=== PATIENT | female | born 1960 | race Caucasian/White ===

== ENCOUNTER 2023-02-27 13:19 | Outpatient (AMB) | payer OTHER, SELFPAY ==
[2023-02-27 13:23] VITALS: BP 152/86; PULSE 76; O2SAT 97; BMI 35.2
--- NOTE | 2023-02-27 13:23 | MHC.OFFVIS ---
Intake Vital Signs 02/27/23 13:23 Height 5 ft 1 in Weight 186 lb 6 oz BMI 35.2 BP 152/86 H Blood Pressure Location Lt brachial Position Sitting Pulse 76 Pulse Source Pulse Oximeter Pulse Oximetry (%) 97 Oxygen Delivery Method Room Air Intake Visit Reasons: NPV-Headaches Intake Note: Pt presents as a NPV for headaches. She doesn't know why, she thought it was because of diabetes but the doctor said no. [employer] Manager Required: No [employer] Manager Name: Friend, Pt refused [place] int Accompanied by: Friend Allergies No Known Allergies Allergy (Verified 02/27/23 13:29) Medication List - Last Reconciled 02/27/23 by STACY Petty aspirin 81 mg PO DAILY atorvastatin 40 mg PO DAILY calcium carbonate-vitamin D3 600 mg-5 mcg (200 unit) 1 tab PO DAILY cyanocobalamin (vitamin B-12) 100 mcg IM DAILY lisinopril-hydrochlorothiazide 20-12.5 mg 1 tab PO DAILY metformin ER 750 mg PO BID oxybutynin chloride 10 mg PO DAILY HPI HPI Comments History of Present Illness Details Left-handed 63-yr-old female presents for new pt evaluation of headache disorder. Pt reports she started having headaches about 1 yr ago. She initially thought this was r/t her diabetes but her PCP did not think so.Pt states she was very stressed at that time, but denies any other preceding causes. She had a Brain MRI- per PCP note, some white matter changes. Headache questionnaire: Headache characteristics? Back of the head, more so left sided. Feels like a strong noise. Pain intensity? Mild-mod Prodrome symptoms? None Aura? None Associated symptoms? Photophobia, phonophobia, brain fog, neck pain Focal weakness, Parethesias, Autonomic s/s? None Postdrome? It lingers Triggers? possibly poor sleep Positional, valsalva, exertional, sexual activity triggers? none Menstrual triggers? n/a Time of day? usually closer to the evening Duration? Constant- intensity fluctuates Frequency? Constant How does headache impact your life? The headache makes her daily activities more difficult Current acute medication use/interventions: Tylenol- helps some Previous acute medication use: None Current preventative medication use: None Previous preventative medication use: None Non-pharmacological interventions: Rest Other history of headache disorder? None History of musculoskeletal disorders or injury? Knee pain, leg cramping. Has some numbness and tingling in her linda fingers- ? diabetic neuropathy History of concussion/head injury? None History of mood disorder? None History of sleep disorder? sleep difficulties- difficulty initiating sleep, frequent arousals History of respiratory disease? None History of CV disease? HTN and HLD- BP is a bit higher at 152/86 than her normal-usually SBP 120-125s. Maybe she thinks she is nervous. History of coagulopathy? None History of endocrine or metabolic disease? Diabetes- pt states well-controlled History of seizure? None Other? Denies constipation. Family planning? n/a Family history of migraine or other headache disorder? her sister PFSH Surgical History (Updated 02/27/23 @ 13:37 by Jordana Matias CMA) Hx of appendectomy Family History Mother Hypertension Social History (Updated 02/27/23 @ 13:38 by Jordana Matias CMA) Alcohol intake: never Patient Tobacco Use Status: Never used Tobacco Review of Systems Const Details: See scanned ROS form Physical Exam Vital Signs: Last Vital Signs Pulse 76 02/27/23 13:23 BP 152/86 H 02/27/23 13:23 Pulse Ox 97 02/27/23 13:23 Oxygen Delivery Method Room Air 02/27/23 13:23 BMI result Body Mass Index 35.2 Const Orientation/consciousness: patient oriented x3 HEENT Other: No palpable scalp tenderness. Head: Yes normocephalic Resp Effort & Inspection: normal respiratory effort and able to speak in complete sentences Back/Spine/Pelvis Other: Bilateral posterior cervical tightness. Cervical ROM: full Left Spurling: normal Right Spurling: normal. Neuro General: patient oriented x3 Cranial nerves: Yes CN's II-XII intact bilaterally Cognition (Neuro): normal cognition Gait exam (Neuro): Normal gait present Motor exam (neuro): 5/5 motor strength present throughout Deep tendon reflexes (DTR's): Right triceps reflex intensity grade: 2+, Left triceps reflex intensity grade: 2+, Rt Biceps (C5, C6): 2+, Left biceps reflex intensity grade: 2+, Right brachioradialis reflex intensity grade: 2+, Left brachioradialis reflex intensity grade: 2+, Right patellar reflex intensity grade: 2+ and Left patellar reflex intensity grade: 2+ Coordination: [id number] test normal, tandem gait normal and Romberg test negative Pupils: Normal pupillary reactivity/response: bilateral Psych Appearance: grossly normal Mental Status: mental status grossly normal Speech and movement: Normal speech and movement present Affect: normal affect Attitude: cooperative Thought process: Normal thought process present Assessment & Plan Assessment & Plan (1) Migraine without aura: Code(s): G43.009 - Migraine without aura, not intractable, without status migrainosus (2) Cervicalgia: Code(s): M54.2 - Cervicalgia (3) Snoring: Code(s): R06.83 - Snoring (4) Excessive daytime sleepiness: Code(s): G47.19 - Other hypersomnia (5) Sleep difficulties: Code(s): G47.9 - Sleep disorder, unspecified Plan Pt advised to undergo HST to assess for sleep apnea- as this may cause increased headaches. Pt advised to start PT for cervical myofascial release, craniosacral tx, posture/core strength/training. For BUE hand numbness/tingling- Monitor clinically for now- if worsens consider furtehr work-up. For overall headache management: Discussed importance of good self-care, including but not limited to maintaining a healthy diet, adequate fluid intake, adequate sleep, and engaging in regular physical activity. For headache triggers: Track headaches, especially after any treatment regimen changes. For acute headache treatment: Discussed importance of taking acute medications at the first sign of headache, however stressed importance of avoiding acute medication overuse (especially with combined headache medications). Trial Ubrogepant (Ubrelvy) 100mg tab, 1 tab (100mg) at onset of headache, may repeat in 2 hours. Max of 2 tabs (200mg) per 24 hours. May adjunct with OTC Tylenol 650mg q 4 hours or 1000mg q 6-8 hours, Reviewed potential adverse effects of gepants, including but not limited to fatigue, nausea, dry mouth, constipation. Previous acute migraine medication trials: None Acute migraine medication contraindications: Triptans- d/t HTN and HLD For headache prevention medication: Discussed that preventative medications should be taken routinely as prescribed for best effect, it may take several weeks for full effect to take effect. Start Riboflavin 400mg qam Start Magnesium 400mg qhs Previous migraine prevention medication trials: Migraine prevention medication contraindications: Pt to follow-up in 3 months or sooner prn. Orders: Orders PT Evaluation and Treatment Today G43.009 - Migraine without aura, not intractable, without status migrainosus, M54.2 - Cervicalgia RT home sleep study Today G47.19 - Other hypersomnia, G47.9 - Sleep disorder, unspecified, R06.83 - Snoring Medications: New ubrogepant (Ubrelvy) take at onset of migraine, may repeat in 2hrs (may take w/ Tylenol) 100 mg PO ONCE 30 days PRN 16 tabs 3RF migraine headache riboflavin (vitamin B2) 400 mg PO DAILY 30 days 30 tabs 6RF magnesium oxide may hold for loose stools 400 mg PO BEDTIME 30 days 30 tabs 6RF Coding Level of Care Code New Pt Level 4 (23912) Diagnoses Migraine without aura G43.009 Cervicalgia M54.2 Snoring R06.83 Excessive daytime sleepiness G47.19 Sleep difficulties G47.9
== END 2023-02-27 14:41 | disposition home or self-care (01) ==
PROVIDERS: Visit Provider Nurse Practitioner Family
DX: G43.009 Migraine without aura, not intractable, without status migrainosus (principal); M54.2 Cervicalgia; R06.83 Snoring; G47.19 Other hypersomnia; G47.9 Sleep disorder, unspecified
CPT/HCPCS: 99204

== ENCOUNTER → 2023-02-27 13:19 | Outpatient (BNVA) | payer OTHER, SELFPAY | PROVIDERS: Visit Provider Nurse Practitioner Family ==

== ENCOUNTER 2023-06-06 11:32 | Outpatient (AMB) | payer OTHER, SELFPAY ==
--- NOTE | 2023-06-06 11:33 | MHC.OFFVIS ---
Intake Vital Signs 06/06/23 11:34 Height 5 ft 1 in Weight 183 lb BMI 34.6 Pulse 73 Pulse Source Pulse Oximeter Pulse Oximetry (%) 97 Oxygen Delivery Method Room Air Intake Visit Reasons: Follow up - Headaches - Confirmed Intake Note: Patient presents for follow up headaches patient states They have gotten better Allergies No Known Allergies Allergy (Verified 06/06/23 11:35) Medication List - Last Reconciled 06/06/23 by STACY Petty aspirin 81 mg PO DAILY atorvastatin 40 mg PO DAILY calcium carbonate-vitamin D3 600 mg-5 mcg (200 unit) 1 tab PO DAILY cyanocobalamin (vitamin B-12) 100 mcg IM DAILY lisinopril-hydrochlorothiazide 20-12.5 mg 1 tab PO DAILY magnesium oxide 400 mg PO BEDTIME 30 days metformin ER 750 mg PO BID oxybutynin chloride 10 mg PO DAILY riboflavin (vitamin B2) 400 mg PO DAILY 30 days ubrogepant (Ubrelvy) 100 mg PO ONCE PRN 30 days HPI HPI Comments History of Present Illness Details 63-yr-old female presents for f/u visit, accompanied by her dtr. Pt denies any significant interval medical changes. Pt reports she is having less intense and less frequent headaches, but still grater than 4 headache days per month. She feels Riboflavin and Mag have been helpful. She did some PT which was helpful- neck is better. She never received the Ubrelvy. She states she did not have the requested HST- as dtr states she already had a sleep study and was given a ? CPAP- PFSH Surgical History Hx of appendectomy Family History Mother Hypertension Social History Alcohol intake: never Patient Tobacco Use Status: Never used Tobacco Review of Systems Const All systems reviewed & are unremarkable except as noted in HPI and below Physical Exam Vital Signs: Last Vital Signs Pulse 73 06/06/23 11:34 Pulse Ox 97 06/06/23 11:34 Oxygen Delivery Method Room Air 06/06/23 11:34 BMI result Body Mass Index 34.6 Const General: cooperative and no acute distress Orientation/consciousness: patient oriented x3 HEENT Head: Yes normocephalic Resp Effort & Inspection: normal respiratory effort and able to speak in complete sentences Neuro General: patient oriented x3, gait normal and CN's II-XI intact bilaterally Cognition (Neuro): normal cognition Motor exam (neuro): 5/5 motor strength present throughout Psych Appearance: grossly normal Mental Status: mental status grossly normal Speech and movement: Normal speech and movement present Affect: normal affect Attitude: cooperative Thought process: Normal thought process present Thought content: Normal thought content present Insight: Good insight present (Psych) Judgement: Good judgement present (Psych) Assessment & Plan Assessment & Plan (1) Migraine without aura: Code(s): G43.009 - Migraine without aura, not intractable, without status migrainosus (2) Sleep difficulties: Code(s): G47.9 - Sleep disorder, unspecified (3) Excessive daytime sleepiness: Code(s): G47.19 - Other hypersomnia (4) Snoring: Code(s): R06.83 - Snoring (5) Cervicalgia: Code(s): M54.2 - Cervicalgia Plan Will request recent sleep study notes and reports. For BUE hand numbness/tingling- Monitor clinically for now- if worsens consider further work-up. ? For overall headache management: Track headaches. ? For acute headache treatment: Again trial Ubrogepant (Ubrelvy) 100mg tab, 1 tab (100mg) at onset of headache, may repeat in 2 hours. Max of 2 tabs (200mg) per 24 hours. May adjunct with OTC Tylenol 650mg q 4 hours or 1000mg q 6-8 hours, Reviewed potential adverse effects of gepants, including but not limited to fatigue, nausea, dry mouth, constipation. Previous acute migraine medication trials: None Acute migraine medication contraindications: Triptans- d/t HTN and HLD ? For headache prevention medication: Continue Riboflavin 400mg qam Continue Magnesium 400mg qhs Previous migraine prevention medication trials: Migraine prevention medication contraindications: ? Pt to follow-up in 6 months or sooner prn. Coding Level of Care Code Est Pt Level 4 (57866) Diagnoses Migraine without aura G43.009 Sleep difficulties G47.9 Excessive daytime sleepiness G47.19 Snoring R06.83 Cervicalgia M54.2
[2023-06-06 11:34] VITALS: PULSE 73; O2SAT 97; BMI 34.6
== END 2023-06-06 11:59 | disposition home or self-care (01) ==
PROVIDERS: Visit Provider Nurse Practitioner Family
DX: G43.009 Migraine without aura, not intractable, without status migrainosus (principal); G47.9 Sleep disorder, unspecified; G47.19 Other hypersomnia; R06.83 Snoring; M54.2 Cervicalgia
CPT/HCPCS: 99214

== ENCOUNTER → 2023-06-06 11:32 | Outpatient (BNVA) | payer OTHER, SELFPAY | PROVIDERS: Visit Provider Nurse Practitioner Family ==